=== PATIENT | male | born 1940 | race Caucasian/White ===

== ENCOUNTER 2018-08-08 08:43 | Emergency (ER) | payer MEDICARE, BC ==
[2018-08-08] MEDS ORDERED: Lidocaine 2% Jelly 10 ML Urojet MUCMEM ONE (08:54)
--- NOTE | 2018-08-08 09:53 | EDM.PDOC ---
ED HPI GENERAL MEDICAL PROBLEM - General Chief Complaint: Genitourinary Problem Stated Complaint: CONTINUED PASSING URINE Time Seen by Provider: 08/08/18 09:40 Source of Information: Reports: Patient, Old Records, RN History Limitations: Reports: No Limitations - History of Present Illness INITIAL COMMENTS - FREE TEXT/NARRATIVE: 78 yo male presents with urinary retention. Only able to dribble. Did have a prostate biopsy recently. No dysuria or fever. Is on Cardura currently for BPH sx's. Onset: Sudden Duration: Hour(s):, Getting Worse Location: Reports: Pelvis (bladder) Quality: Reports: Pressure Severity: Moderate Improves with: Reports: None Worsens with: Reports: Other (time) Context: Reports: Other (see HPI) Associated Symptoms: Reports: No Other Symptoms Treatments HOME HEALTH TRAVEL OT: Reports: Other (see below) (none) Penis Pain Score (Numeric/FACES): 5 - Related Data Allergies Allergy/AdvReac Type Severity Reaction Status Date / Time Sulfa (Sulfonamide Allergy Hives Verified 08/08/18 09:29 Antibiotics) Home Meds: Home Meds Doxazosin [Cardura] 1 tab PO DAILY 08/08/18 [History] Latanoprost 1 drop EYEBOTH BEDTIME 08/08/18 [History] Levothyroxine [Synthroid] 1 tab PO DAILY 08/08/18 [History] Lisinopril 1 tab PO BEDTIME 08/08/18 [History] Pravastatin Sodium [Pravastatin (Pravachol)] 20 mg PO BEDTIME 08/08/18 [History] Tolterodine Tartrate 1 tab PO BEDTIME 08/08/18 [History] amLODIPine Besylate [Amlodipine Besylate] 1 tab PO BEDTIME 08/08/18 [History] hydroCHLOROthiazide [Hydrochlorothiazide] 1 tab PO DAILY 08/08/18 [History] Past Medical History HEENT History: Reports: Glaucoma, Hard of Hearing Cardiovascular History: Reports: High Cholesterol, Hypertension Genitourinary History: Reports: Other (See Below) Other Genitourinary History: urinary retention Neurological History: Reports: Parkinson's Endocrine/Metabolic History: Reports: Hypothyroidism Oncologic (Cancer) History: Reports: Prostate Dermatologic History: Reports: Cellulitis - Past Surgical History HEENT Surgical History: Reports: Other (See Below) Other HEENT Surgeries/Procedures: mastoidectomy Male Surgical History: Reports: Prostate Biopsy, Other (See Below) Other Male Surgeries/Procedures: cryotherapy. 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 Social & Family History - Tobacco Use Smoking Status *Q: Never Smoker - Recreational Drug Use Recreational Drug Use: No ED ROS GENERAL - Review of Systems Review Of Systems: See Below Constitutional: Reports: No Symptoms : Reports: Frequency (dribbles only), Urinary Retention Skin: Reports: No Symptoms ED EXAM, RENAL/ - Physical Exam Exam: See Below Exam Limited By: No Limitations General Appearance: Alert, WD/WN, No Apparent Distress Eye Exam: Bilateral Eye: Normal Inspection Ears: Hearing Grossly Normal Nose: Normal Inspection, No Blood Throat/Mouth: Normal Inspection, Normal Lips, Normal Oropharynx, Normal Voice, No Airway Compromise Head: Atraumatic, Normocephalic Neck: Normal Inspection Respiratory/Chest: No Respiratory Distress, Lungs Clear, Normal Breath Sounds, No Accessory Muscle Use Cardiovascular: Regular Rate, Rhythm, No Edema GI/Abdominal: Normal Bowel Sounds, Soft, Non-Tender, No Distention (Male) Exam: Suprapubic Fullness Neurological: Alert, Oriented, CN II-XII Intact, Normal Cognition Psychiatric: Normal Affect, Normal Mood Skin Exam: Warm, Dry, Intact, Normal Color, No Rash Course - Vital Signs Last Recorded V/S: Last Vital Signs Temp 37.0 C 08/08/18 09:28 Pulse 71 08/08/18 09:28 Resp 16 08/08/18 09:28 BP 149/72 H 08/08/18 09:28 Pulse Ox 99 08/08/18 09:28 - Orders/Labs/Meds Labs: Laboratory Tests 08/08/18 Range/Units 09:34 Urine Color Yellow Urine Appearance Clear Urine pH 6.0 (4.5-8.0) Ur Specific Hardy 1.010 (1.008-1.030) Urine Protein Negative (NEGATIVE) mg/dL Urine Glucose (UA) Normal (NEGATIVE) mg/dL Urine Ketones Negative (NEGATIVE) mg/dL Urine Occult Blood Moderate (NEGATIVE) Urine Nitrite Negative (NEGAITVE) Urine Bilirubin Negative (NEGATIVE) Urine Urobilinogen Normal (NORMAL) mg/dL Ur Leukocyte Esterase Negative (NEGATIVE) Urine RBC 5-10 H (0-5) Urine WBC 0-5 (0-5) Ur Epithelial Cells Few Amorphous Sediment Few Urine Bacteria Few Urine Mucus Few Meds: Medications Discontinued Medications Generic Name Dose Route Start Last Admin Trade Name Michelle PRN Reason Stop Dose Admin Lidocaine HCl 10 ml 08/08/18 08:54 08/08/18 09:34 Xylocaine 2% Jelly MUCMEM 08/08/18 08:55 10 ml ONETIME ONE Administration Departure - Departure Time of Disposition: 10:22 Disposition: Home, Self-Care 01 Condition: Good Clinical Impression: Urinary retention - Discharge Information *PRESCRIPTION DRUG MONITORING PROGRAM REVIEWED*: No *COPY OF PRESCRIPTION DRUG MONITORING REPORT IN PATIENT YANDY: No Instructions: Indwelling Urinary Catheter Care, Adult Referrals: PCP,None [Primary Care Provider] - Forms: ED Department Discharge Additional Instructions: Follow up with your urologist marcela. Continue your current meds.
== END 2018-08-08 10:41 | disposition home or self-care (01) ==
LOC: JP.ED 08:43
DX: R33.9 Retention of urine, unspecified (principal); E78.00 Pure hypercholesterolemia, unspecified; I10 Essential (primary) hypertension; Z88.2 Allergy status to sulfonamides; Z79.899 Other long term (current) drug therapy
CPT/HCPCS: 51702; 81001; 99283